=== PATIENT | male | born 1940 | race Hispanic/Latino ===

== ENCOUNTER 2016-12-10 07:36 | Day surgery (SDC) | payer MEDICARE, MEDICAID ==
[2016-12-03 12:23] VITALS: BMI 34.3
[2016-12-10] MEDS ORDERED: Propofol 10 mg/ml Inj (20 ML) ONE (08:27)
[2016-12-10] MEDS ORDERED: Sodium Chloride 0.9% 1,000 ML IV SCH (09:15)
[2016-12-10 10:07] VITALS: BP 128/75; PULSE 73; RESP 16; TEMP 97.6; O2SAT 96
== END 2016-12-10 10:31 | disposition home or self-care (01) ==
LOC: ENDO 07:36
PROVIDERS: ATTEND Internal Medicine
DX: D12.2 Benign neoplasm of ascending colon (principal); D12.0 Benign neoplasm of cecum; D12.3 Benign neoplasm of transverse colon; K63.5 Polyp of colon; D17.5 Benign lipomatous neoplasm of intra-abdominal organs; K57.30 Diverticulosis of large intestine without perforation or abscess without bleeding; K64.8 Other hemorrhoids
CPT/HCPCS: 45380; 45385; 45381; 82948; 88305; J2704; J7040 ×2

== ENCOUNTER 2018-05-04 17:13 | Emergency (ER) | payer MEDICARE, MEDICAID ==
[2018-05-04 17:19] VITALS: BMI 34.2
[2018-05-04 17:23] VITALS: RESP 18
--- NOTE | 2018-05-04 17:49 | ED PDOC ---
Arrival/HPI - General Chief Complaint: Weakness/Neurological Deficit Time Seen by Provider: 05/04/18 17:32 Historian: Patient, Spouse () - History of Present Illness Narrative History of Present Illness (Text): 05/04/18 17:46 77 year old male, whose past medical history includes DM and ITP, who presents to the ED complaining of generalized weakness. Patient's states patient sticks to a strict daily routine at home, but today slept most of the day. Patient's fasting sugar was higher than normal at 190. Patient denies any fever, chills, SOB, chest pain, abdominal pain, nausea, vomiting, diarrhea, URI, or any other complaints. Of note, states that she did take the patient out yesterday at [employer] to walk around and "get some exercise" as he is mostly home and only walks from his bed to his chair and vice versa. PMD : Dr. Salmon Hem : Dr. Roa Time/Duration: Other (today) Symptom Onset: Gradual Symptom Course: Unchanged Activities at Onset: Light Context: Home Past Medical History - Provider Review Nursing Documentation Reviewed: Yes - Infectious Disease Hx of Infectious Diseases: None - Tetanus Immunization Tetanus Immunization: Unknown - Cardiac Hx Cardiac Disorders: Yes Hx Hypertension: Yes Hx Pacemaker: No Other/Comment: History of Prostrate CA 17 years ago. 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 - Renal Hx Renal Disorder: No - Endocrine/Metabolic Hx Endocrine Disorders: Yes Hx Diabetes Mellitus Type 2: Yes - Hematological/Oncological Hx Blood Disorders: Yes Hx Blood Transfusions: Yes (PLATELETS) Hx Blood Transfusion Reaction: Yes Hx Cancer: Yes (Prostate 17 years ago, HAD BRACHYTHERAPY) - Integumentary Hx Dermatological Disorder: No - Musculoskeletal/Rheumatological Hx Musculoskeletal Disorders: Yes (IS IN CONSTANT PAIN. HXCERVICAL EPIDURALS) Hx Arthritis: Yes Hx Back Pain: Yes Hx Falls: No Hx Herniated Disk: Yes (fell off ladder) Hx Osteoarthritis: Yes Hx Unsteady Gait: Yes (uses a cane) - Gastrointestinal Hx Gastrointestinal Disorders: No Hx Gall Bladder Disease: Yes (GALLSTONES,CHOLELITHIASIS) - Genitourinary/Gynecological Hx Genitourinary Disorders: Yes (URINARY FREQUENCY) Hx Hematuria: Yes (PROSTATE CA) Hx Prostate Problems: Yes (PROSTATE CA) Hx Reproductive Disorders: Yes - Psychiatric Hx Psychophysiologic Disorder: No Hx Anxiety: Yes Hx Depression: No Hx Emotional Abuse: No Hx Physical Abuse: No Hx Substance Use: No Other/Comment: etoh - Past Surgical History Past Surgical History: No Previous - Surgical History Hx Appendectomy: Yes Hx Cholecystectomy: Yes Hx Eye Surgery: Yes Other/Comment: BILATERAL CATARACT SURGERY - Anesthesia Hx Anesthesia: Yes Hx Anesthesia Reactions: No Hx Malignant Hyperthermia: No - Suicidal Assessment Feels Threatened In Home Enviroment: No Family/Social History - Physician Review Nursing Documentation Reviewed: Yes Family/Social History: Unknown Family HX Smoking Status: Never Smoked Hx Alcohol Use: Yes (HEAVY DRINKER-ALCOHOL ABUSE- STOPPED 02/2014) Amount per day: 8 Hx Substance Use: No Hx Substance Use Treatment: No Allergies/Home Meds Allergies/Adverse Reactions: Allergies No Known Allergies Allergy (Verified 12/16/17 11:53) Home Medications: Home Meds Medication Instructions Recorded Confirmed Lisinopril [Zestril] 10 mg PO QAM 09/11/15 05/04/18 Cetirizine HCl [Wal-Zyr] 10 mg PO HS 04/21/16 05/04/18 Repaglinide [Prandin] 1 mg PO ACTID 06/16/16 05/04/18 Docusate Sodium [Stool Softener] 100 mg PO QAM 12/03/16 05/04/18 Dulaglutide [Trulicity] 0.75 mg SC WED 12/03/16 05/04/18 Famotidine [Pepcid] 40 mg PO BID 12/10/16 05/04/18 FLUoxetine [Fluoxetine HCl] 20 mg PO DAILY 12/16/17 05/04/18 Oxycodone HCl 10 mg PO TID 12/16/17 05/04/18 Review of Systems - Physician Review All systems were reviewed & negative as marked: Yes - Review of Systems Constitutional: Fatigue Eyes: Normal ENT: Normal Respiratory: Normal. absent: SOB, Cough Cardiovascular: Normal. absent: Chest Pain Gastrointestinal: Normal. absent: Abdominal Pain, Diarrhea, Nausea, Vomiting Genitourinary Male: Normal. absent: Dysuria, Frequency Musculoskeletal: Normal. absent: Back Pain, Neck Pain Skin: Normal. absent: Rash Neurological: Normal. absent: Headache, Dizziness Endocrine: Normal Hemo/Lymphatic: Normal Psychiatric: Normal Physical Exam Vital Signs Reviewed: Yes Vital Signs Temp Pulse Resp BP Pulse Ox 05/04/18 17:20 97.7 F 90 18 130/78 94 L 05/04/18 17:14 97.7 F 90 18 130/78 94 L Temperature: Afebrile Blood Pressure: Normal Pulse: Regular Respiratory Rate: Normal Appearance: Positive for: Well-Appearing, Non-Toxic, Comfortable Pain Distress: None Mental Status: Positive for: Alert and Oriented X 3 Finger Stick Blood Glucose: 129 - Systems Exam Head: Present: Atraumatic, Normocephalic Pupils: Present: PERRL Extroacular Muscles: Present: EOMI Conjunctiva: Present: Normal Mouth: Present: Moist Mucous Membranes Neck: Present: Normal Range of Motion Respiratory/Chest: Present: Clear to Auscultation, Good Air Exchange. No: Respiratory Distress, Accessory Muscle Use Cardiovascular: Present: Regular Rate and Rhythm, Normal S1, S2. No: Murmurs Abdomen: No: Tenderness, Distention, Peritoneal Signs Back: Present: Normal Inspection Upper Extremity: Present: Normal Inspection. No: Cyanosis, Edema Lower Extremity: Present: Normal Inspection. No: Edema Neurological: Present: GCS=15, CN II-XII Intact, Speech Normal Skin: Present: Warm, Dry, Normal Color. No: Rashes Psychiatric: Present: Alert, Oriented x 3, Normal Insight, Normal Concentration Medical Decision Making ED Course and Treatment: 05/04/18 17:49 Impression: 77 year old male presents to the ED complaining of general weakness x today. Plan: Progress Notes: Labs reviewed : plt 254, trop (-), bnp (-), glucose 172, rest of the CMP wnl, UA (-) for infection CXR : NAD. EKG : NSR at 77 bpm, no acute ST changes. Vital signs stable. On reevaluation, patient reports improvement of symptoms, denies any headache, dizziness, chest pain, shortness of breath. On exam, patient remains awake alert and oriented 3 in no acute distress, patient is smiling and is cheerful, in good spirits. Repeat neuro exam shows no focal findings. Case d/w Dr. Salmon, who agrees with plan for outpatient follow up. States that the patient can call his office tomorrow to set up follow up at his office. Advised to follow up with primary care physician in 1-2 days without fail. Return to the emergency room at any time for any new or worsening symptoms. Patient states he fully agrees with and understands discharge instructions. States that he agrees with the plan and disposition. Verbalized and repeated discharge instructions and plan. I have given the patient opportunity to ask any additional questions. - PA / PROCESS SAFETY MANAGEMENT ENGINEER / Resident Statement MD/DO has reviewed & agrees with the documentation as recorded. - Scribe Statement The provider has reviewed the documentation as recorded by the Scribe Mery Hernandez All medical record entries made by the Scribe were at my direction and personally dictated by me. I have reviewed the chart and agree that the record accurately reflects my personal performance of the history, physical exam, medical decision making, and the department course for this patient. I have also personally directed, reviewed, and agree with the discharge instructions and disposition. Disposition/Present on Arrival - Present on Arrival Any Indicators Present on Arrival: No History of DVT/PE: No History of Uncontrolled Diabetes: No Urinary Catheter: No History of Decub. Ulcer: No History Surgical Site Infection Following: None - Disposition Have Diagnosis and Disposition been Completed?: Yes Diagnosis: Weakness, Fatigue Disposition: HOME/ ROUTINE Disposition Time: 18:45 Patient Plan: Discharge Patient Problems: Current Active Problems Problem Status Onset Weakness Acute Fatigue Acute Condition: STABLE Discharge Instructions (ExitCare): Fatigue, Generalized Weakness Additional Instructions: Thank you for letting us take care of you today. You were treated for weakness, fatigue. The emergency medical care you received today was directed at your acute symptoms.Return to the Emergency Department if your symptoms worsen, do not improve, or if you have any other problems. Please contact your doctor in 2 days for re-evaluation and follow up. Bring any paperwork you were given at discharge with you along with any medications you are taking to your follow up visit. Our treatment cannot replace ongoing medical care by a primary care provider (PCP) outside of the emergency department. Thank you for allowing the [facility] team to be part of your care today. If you had an X-Ray : A Radiologist will review the ED reading if any change in treatment is needed we will contact you. If you had a urine culture: It will take several days for the results, if any change in treatment is needed we will contact you. Forms: [employer] (Japanese)
[2018-05-04 18:20] LABS: BASO # 0.04 K/mm3 (0.0-2.0); BASO % 0.4 % (0.0-3.0); EOS # 0.5 (0.0-0.7); EOS % 5.2 % (1.5-5.0); GRAN # 5.85 (1.4-6.5); GRAN % 60.4 % (50.0-68.0); HEMOGLOBIN 14.3 g/dL (14.0-18.0); LYMPH # 2.7 (1.2-3.4); LYMPH % 27.8 % (22.0-35.0); MEAN CELL VOLUME 92.3 fl (80.0-105.0); MEAN CORPUSCULAR HEMOGLOBIN 30.6 pg (25.0-35.0); MEAN CORPUSCULAR HGB CONC 33.2 g/dl (31.0-37.0); MEAN PLATELET VOLUME 8.8 fl (7.0-11.0); MONO # 0.6 (0.1-0.6); MONO % 6.2 % (1.0-6.0); RBC 4.67 10^6/uL (3.5-6.1); RED CELL DISTRIBUTION WIDTH 14.8 % (11.5-14.5); WHITE BLOOD COUNT 9.7 10^3/uL (4.5-11.0)
[2018-05-04 18:27] LABS: URINE BILIRUBIN NEGATIVE (NEGATIVE); URINE BLOOD TRACE-INTACT (NEGATIVE); URINE GLUCOSE (UA) NEGATIVE (NEGATIVE); URINE LEUKOCYTE ESTERASE NEGATIVE Leu/uL (NEGATIVE); URINE PROTEIN NEGATIVE mg/dL (<30 mg/dL); URINE UROBILINOGEN 0.2 E.U./dL (<1 E.U./dL)
[2018-05-04 18:31] LABS: ALB/GLOB RATIO 1.1 (1.1-1.8); ALBUMIN 3.9 g/dL (3.0-4.8); ALT/SGPT 22 U/L (7-56); AST/SGOT 21 U/L (17-59); BLOOD UREA NITROGEN 13 mg/dL (7-21); CALCIUM 9.2 mg/dL (8.4-10.5); GFR NON-AFRICAN AMERICAN > 60; URINE APPEARANCE CLEAR (CLEAR); URINE COLOR YELLOW (YELLOW)
[2018-05-04 18:33] LABS: INR 1.07; PARTIAL THROMBOPLASTIN TIME 29.5 Seconds (25.1-36.5); PROTHROMBIN TIME 12.2 SECONDS (9.4-12.5)
[2018-05-04 18:42] LABS: TROPONIN I < 0.01 ng/mL
[2018-05-04 18:45] LABS: URINE BACTERIA FEW (NEG); URINE RBC 0 - 2 /hpf (0-2)
[2018-05-04 19:31] VITALS: BP 138/80; PULSE 85; TEMP 98.5; O2SAT 98
--- NOTE | 2018-05-05 09:13 | RAD ---
Date of service: 05/04/2018 HISTORY: weakness COMPARISON: 09/17/2015 FINDINGS: LUNGS: No active pulmonary disease. PLEURA: No significant pleural effusion identified, no pneumothorax apparent. CARDIOVASCULAR: Aortic calcification Normal cardiac size. No pulmonary vascular congestion. OSSEOUS STRUCTURES: No significant abnormalities. VISUALIZED UPPER ABDOMEN: Normal. OTHER FINDINGS: None. IMPRESSION: No active disease.
--- NOTE | 2018-05-05 09:15 | CARD ---
APPROVED REPORT Date of service: 05/04/2018 EKG Measurement Heart [id number] <Conclusion> Normal sinus rhythm Normal ECG
== END 2018-05-04 19:31 | disposition home or self-care (01) ==
LOC: ED 17:13
DX: R53.1 Weakness (principal); R53.83 Other fatigue; I10 Essential (primary) hypertension; E11.9 Type 2 diabetes mellitus without complications; D69.3 Immune thrombocytopenic purpura; Z85.46 Personal history of malignant neoplasm of prostate